=== PATIENT | female | born 1970 | race Caucasian/White ===

== ENCOUNTER 2016-12-16 09:15 | Day surgery (SDC) | payer OTHER ==
[2016-12-15 13:01] VITALS: BMI 22.1
[2016-12-16 11:59] VITALS: TEMP 97.5
[2016-12-16 12:23] VITALS: PULSE 58
[2016-12-16 13:04] VITALS: BP 97/62
--- NOTE | 2016-12-17 13:29 | PATH ---
Surgical Pathology Report Patient Name: KATIE MACKENZIE [facility]. Rec. #: [id number] /Age/Gender: 1970 (Age: 46) / F Account: [id number] Location: U-ENDOSCOPY Taken: 12/16/2016 Received: 12/16/2016 Reported: 12/17/2016 Physicians: Rod Sheridan M.D. Specimen(s) Received A: BX CECUM B: BX INFLAMMATION RECTUM Clinical History Diarrhea, weight loss Normal colon, inflammation rectum Final Diagnosis A. COLON, CECUM, BIOPSY: COLONIC MUCOSA WITH FOCAL REACTIVE LYMPHOID AGGREGATE. NO EVIDENCE OF ACTIVE INFLAMMATION, SIGINIFICANT ARCHITECTURAL DISTORTION, GRANULOMATA OR DYSPLASIA; NO EVIDENCE OF MICROSCOPIC (LYMPHOCYTIC) COLITIS. B. RECTUM, INFLAMMATION, BIOPSY: RECTAL MUCOSA WITH FEW NEUTROPHILS IN LAMINA PROPRIA (SEE COMMENT). NO EVIDENCE OF SIGNIFICANT ARCHITECTURAL DISTORTION, GRANULOMATA OR DYSPLASIA. Comment: The findings are nonspecific and may represent mild inflammation of various etiologies including infections and drug/toxin injury. Clinical and endoscopic correlations are suggested. Electronically Signed Seven Chang M.D. Gross Description A. Received in formalin, labeled "biopsy cecum" are 3 del real, irregular portions of soft tissue ranging from 0.2-0.3 cm in greatest dimension. The specimens are submitted in toto in one cassette. B. Received in formalin, labeled "biopsy inflammation rectum" is a del real, irregular portion of soft tissue measuring 0.2 cm in greatest dimension. The specimen is submitted in toto in one cassette. /12/16/2016 saudi12/16/2016
== END 2016-12-16 13:04 | disposition home or self-care (01) ==
LOC: JASU-ENDO 09:15
PROVIDERS: ATTEND Internal Medicine Gastroenterology
PROC: 0DBP8ZX Excision of Rectum, Via Natural or Artificial Opening Endoscopic, Diagnostic (ICD-10-PCS; 2016-12-16)
PROC: 0DBE8ZX Excision of Large Intestine, Via Natural or Artificial Opening Endoscopic, Diagnostic (ICD-10-PCS; principal; 2016-12-16 09:00)
DX: K52.9 Noninfective gastroenteritis and colitis, unspecified (principal); K63.9 Disease of intestine, unspecified; Z80.0 Family history of malignant neoplasm of digestive organs
CPT/HCPCS: 84703; 87045; 87046; 87177; 87207; 87209; 87324; 87328; 87329; 87449; 88305-TC